=== PATIENT | male | born 1975 | race Caucasian/White ===

== ENCOUNTER 2018-11-27 22:51 | Emergency (ER) | payer OTHER ==
[~2018-11-27] VITALS: Ht 185.4 cm; Wt 81.7 kg
[~2018-11-27 22:51] MED LIST: ARIP30 PO; ASENAPINE PO; ATOR80 PO; DIPH25 PO; DIPH50 PO; DIVA500EC PO; ERGO50000 PO; HTN MEDICATIONS; HYDHCL25 PO; HYDPAM25 PO; IBUP600 PO; INVEGA PO; KETO10 PO; LAMO100 PO; LISI20 PO; LISI5 PO; LOXA10 PO; NAPR500 PO; OMEP20ER PO; OMEP40CA12 PO; ONDA4 PO; OXYACE5T PO; PRAV10 PO; PROM25 PO; QUET100 PO; RXONDA4ODT MM; RXPROM25 PO; SERT100 PO; TRAZ100 PO; ZIPR20 PO
[2018-11-27] MEDS ORDERED: IBUP800 PO (23:51)
== END 2018-11-28 00:10 | disposition home or self-care (01) ==
LOC: ER 22:51
DX: S20.211A Contusion of right front wall of thorax, initial encounter (principal); W01.0XXA Fall on same level from slipping, tripping and stumbling without subsequent striking against object, initial encounter; Z79.899 Other long term (current) drug therapy; E11.9 Type 2 diabetes mellitus without complications; I10 Essential (primary) hypertension; F17.210 Nicotine dependence, cigarettes, uncomplicated
CPT/HCPCS: 71046; 99283-25

== ENCOUNTER 2019-05-16 13:21 | Emergency (ER) | payer OTHER ==
[~2019-05-16] VITALS: Ht 185.4 cm; Wt 72.6 kg
[~2019-05-16 13:21] MED LIST changes: +IBUP800 PO
== END 2019-05-16 15:22 | disposition home or self-care (01) ==
LOC: ER 13:21
DX: S80.812A Abrasion, left lower leg, initial encounter (principal); M54.2 Cervicalgia; M54.5 Low back pain; E11.9 Type 2 diabetes mellitus without complications; I10 Essential (primary) hypertension; E78.5 Hyperlipidemia, unspecified; F20.9 Schizophrenia, unspecified; F17.210 Nicotine dependence, cigarettes, uncomplicated; Z88.8 Allergy status to other drugs, medicaments and biological substances; Z79.899 Other long term (current) drug therapy; Y04.2XXA Assault by strike against or bumped into by another person, initial encounter
CPT/HCPCS: 72040; 72100; 73562-LT; 99284-25

== ENCOUNTER 2019-07-05 15:56 | Emergency (ER) | payer OTHER ==
[~2019-07-05] VITALS: Ht 185.4 cm; Wt 90.7 kg
[2019-07-05] MEDS ORDERED: Naprosyn500 MG PO (16:49)
[2019-07-05] MEDS ORDERED: PERIDEX15 ML MM (16:49)
[2019-07-05] MEDS ORDERED: Amoxicillin500 MG PO (16:49)
== END 2019-07-05 17:13 | disposition home or self-care (01) ==
LOC: ER 15:56
DX: K02.9 Dental caries, unspecified (principal); I10 Essential (primary) hypertension; E78.5 Hyperlipidemia, unspecified; E11.9 Type 2 diabetes mellitus without complications; F20.9 Schizophrenia, unspecified; F17.210 Nicotine dependence, cigarettes, uncomplicated; Z88.8 Allergy status to other drugs, medicaments and biological substances; Z79.899 Other long term (current) drug therapy
CPT/HCPCS: 99282

== ENCOUNTER → 2019-09-18 | Outpatient (CLI) | payer OTHER ==
[~2019-09-18] MED LIST changes: +Amoxicillin500 MG PO; +Naprosyn500 MG PO; +PERIDEX15 ML MM
[2019-09-18 19:39] LABS: BASOPHILS ABSOLUTE AUTO 0.05 K/mm3 (0.00-0.23); BASOPHILS PERCENT AUTO 1 % (0-2); EOSINOPHILS ABSOLUTE AUTO 0.12 K/mm3 (0.00-0.68); EOSINOPHILS PERCENT AUTO 1 % (0-6); Hematocrit 44.5 % (37.0-53.0); Hemoglobin 14.5 g/dL (13.5-17.5); IMMATURE GRAN ABSOLUTE AUTO 0.02 K/mm3 (0.00-0.10); IMMATURE GRAN PERCENT AUTO 0 % (0-1); LYMPHOCYTES PERCENT AUTO 31 % (21-46); MONOCYTES ABSOLUTE AUTO 0.59 K/mm3 (0.16-1.47); MONOCYTES PERCENT AUTO 7 % (4-13); Mean Corpuscular HGB 28.7 pg (26.0-34.0); Mean Corpuscular HGB Conc 32.6 g/dL (31.5-36.5); Mean Corpuscular Volume 88 fL (80-100); Mean Platelet Volume 9.9 fL (9.1-12.4); NEUTROPHILS ABSOLUTE AUTO 5.17 K/mm3 (1.96-9.15); NEUTROPHILS PERCENT AUTO 60 % (41-73); Platelet Count 337 K/mm3 (150-400); RDW Coefficient Variation 12.8 % (11.7-14.2); RDW Standard Deviation 41.4 fL (35.1-46.3); Red Blood Cell Count 5.06 M/mm3 (4.30-5.90); White Blood Cell Count 8.65 K/mm3 (4.00-11.30)
[2019-09-18 19:59] LABS: Alanine Aminotransfer (ALT/SGP 21 U/L (12-78); Albumin, Blood 3.8 g/dL (3.4-5.0); Alk Phos 63 U/L (50-136); Anion Gap 5 mmol/L (6-16); Aspartate Aminotrans (AST/SGOT 18 U/L (12-37); Bilirubin, Total 0.4 mg/dL (0.1-1.0); Blood Urea Nitrogen 7 mg/dL (8-24); Bun/Creatinine Ratio 8.8 (12.0-20.0); CHOL/HDL RATIO 3.8; CO2, Blood 27 mmol/L (21-32); Calcium, Blood 9.2 mg/dL (8.5-10.1); Chloride, Blood 107 mmol/L (98-108); Cholesterol 158 mg/dL (50-200); Creatinine, Blood 0.79 mg/dL (0.60-1.20); Globulin, Blood 3.8 g/dL (2.2-4.0); Glomerular Filtration Rate >60 (60-); Glucose, Blood 89 mg/dL (70-99); HDL Cholesterol 42 mg/dL (>39); LDL/HDL RATIO 2.2; Low Density Lipoprotein Chol 94 mg/dL (0-110); Potassium, Blood 4.2 mmol/L (3.5-5.5); Sodium, Blood 139 mmol/L (136-145); Total Protein, Blood 7.6 g/dL (6.4-8.2); Triglycerides 111 mg/dL (30-160); Very Low Density Lipoprot Chol 22 mg/dL (6-32)
== END | disposition home or self-care (01) ==
LOC: LAB SHORT 16:30 → LAB 16:30
PROVIDERS: Nurse Practitioner
DX: E78.5 Hyperlipidemia, unspecified (principal); I10 Essential (primary) hypertension
CPT/HCPCS: 80053; 80061; 85025

== ENCOUNTER 2021-08-09 20:40 | Emergency (ER) | payer OTHER ==
[~2021-08-09] VITALS: Ht 185.4 cm; Wt 99.8 kg
[2021-08-09] MEDS ORDERED: AMOCLA875 PO (21:36)
== END 2021-08-09 21:40 | disposition home or self-care (01) ==
LOC: ER 20:40
DX: K04.7 Periapical abscess without sinus (principal); E11.9 Type 2 diabetes mellitus without complications; I10 Essential (primary) hypertension; E78.00 Pure hypercholesterolemia, unspecified; F17.210 Nicotine dependence, cigarettes, uncomplicated; Z88.8 Allergy status to other drugs, medicaments and biological substances
CPT/HCPCS: A9270

== ENCOUNTER 2021-10-28 15:54 | Emergency (ER) | payer OTHER ==
[~2021-10-28] VITALS: Ht 185.4 cm; Wt 89.8 kg
[~2021-10-28 15:54] MED LIST changes: +AMOCLA875 PO
[2021-10-28] MEDS ORDERED: AMOCLA875 PO (16:15)
== END 2021-10-28 16:27 | disposition home or self-care (01) ==
LOC: ER 15:54
DX: K04.7 Periapical abscess without sinus (principal); K02.9 Dental caries, unspecified; E11.9 Type 2 diabetes mellitus without complications; I10 Essential (primary) hypertension; Z79.899 Other long term (current) drug therapy; F17.210 Nicotine dependence, cigarettes, uncomplicated
CPT/HCPCS: 99282; A9270

== ENCOUNTER 2024-12-14 00:08 | Emergency (ER) | payer OTHER ==
[~2024-12-14] VITALS: Ht 185.4 cm; Wt 80.3 kg
[2024-12-14 00:44] VITALS: BP 125/88
== END 2024-12-14 01:50 | disposition left against medical advice (07) ==
LOC: ER 00:08
DX: S39.91XA Unspecified injury of abdomen, initial encounter (principal); Z53.21 Procedure and treatment not carried out due to patient leaving prior to being seen by health care provider
CPT/HCPCS: 76870

== ENCOUNTER 2025-05-04 10:06 | Emergency (ER) | payer OTHER ==
[~2025-05-04] VITALS: Ht 170.2 cm; Wt 63.5 kg
[2025-05-04 10:56] VITALS: BP 122/88
== END 2025-05-04 11:00 | disposition home or self-care (01) ==
LOC: ER 10:06
DX: S61.213A Laceration without foreign body of left middle finger without damage to nail, initial encounter (principal); I10 Essential (primary) hypertension; Z79.2 Long term (current) use of antibiotics; Z79.899 Other long term (current) drug therapy; Z88.8 Allergy status to other drugs, medicaments and biological substances; F17.210 Nicotine dependence, cigarettes, uncomplicated; W26.8XXA Contact with other sharp object(s), not elsewhere classified, initial encounter
CPT/HCPCS: 90471; 90715; 99283-25